=== PATIENT | male | born 1975 | race Caucasian/White ===

== ENCOUNTER → 2025-05-09 | Emergency (ER) | payer OTHER ==
[~2025-05-09] VITALS: Ht 177.8 cm; Wt 100.0 kg
[~2025-05-09] MED LIST: ONDA-104 PO; TAMS0.4C94 PO
[2025-05-09 17:29] VITALS: BP 129/82; PULSE 78; RESP 18; TEMP 98.4; O2SAT 96
== END | disposition still patient (30) ==
LOC: EMS 17:10
DX: N23 Unspecified renal colic (principal); Z53.21 Procedure and treatment not carried out due to patient leaving prior to being seen by health care provider
CPT/HCPCS: 99281; Z7502